=== PATIENT | female | born 1955 | race Caucasian/White ===

== ENCOUNTER → 2017-06-19 19:22 | Outpatient (CLI) | payer BC ==
[2011-05-21 11:20] VITALS: BMI 25.8
== END | disposition home or self-care (01) ==
LOC: D.MAMMO 16:00
DX: Z12.31 Encounter for screening mammogram for malignant neoplasm of breast (principal)

== ENCOUNTER → 2017-07-01 13:48 | Outpatient (CLI) | payer MEDICAID ==
[2011-05-21 11:20] VITALS: BMI 25.8
== END | disposition home or self-care (01) ==
LOC: D.MAMMO 08:30
DX: R92.8 Other abnormal and inconclusive findings on diagnostic imaging of breast (principal)

== ENCOUNTER 2018-07-04 08:00 | Outpatient (CLI) | payer MEDICAID ==
[2011-05-21 11:20] VITALS: BMI 25.8
== END 2018-07-04 09:00 | disposition home or self-care (01) ==
LOC: D.MAMMO 08:00
DX: Z12.31 Encounter for screening mammogram for malignant neoplasm of breast (principal)

== ENCOUNTER 2019-07-07 08:00 | Outpatient (CLI) | payer MEDICAID ==
[2011-05-21 11:20] VITALS: BMI 25.8
== END 2019-07-07 23:59 | disposition home or self-care (01) ==
LOC: D.MAMMO 08:00
PROVIDERS: ATTEND Family Medicine
DX: Z12.31 Encounter for screening mammogram for malignant neoplasm of breast (principal)

== ENCOUNTER 2019-08-06 08:00 | Outpatient (CLI) | payer BC ==
[2011-05-21 11:20] VITALS: BMI 25.8
== END 2019-08-06 23:59 | disposition home or self-care (01) ==
LOC: D.MAMMO 08:00
PROVIDERS: ATTEND Family Medicine
DX: R92.8 Other abnormal and inconclusive findings on diagnostic imaging of breast (principal)